=== PATIENT | male | born 1965 | race African-American/Black ===

== ENCOUNTER 2016-08-14 00:43 | Emergency (ER) | payer SELFPAY ==
--- NOTE | 2016-08-14 01:17 | ED ORDER SUMMARY ---
..... Patient: ANTONIO FERGUSON OrderSheet [facility] VisitID: [id number] [address] [place] [address] 51y, M Registration Date/Time: 08/14/2016 ORDER SHEET Weight: 73.4 kg (stated) Allergies: No Known Drug Allergy GENERAL ORDERS: Elbow 3 or 4V Right Urgent (00:47 08/14/2016 AMcQuoid ER Tech1 verbal order read back to Jayne RDZ) (Ack 0:49 AMcQuoid ER Tech1) (0:56 AMcQuoid ER Tech1) Sling - arm (01:17 08/14/2016 Jayne RDZ) (1:18 HSoule) MEDICATION ORDERS: IV FLUIDS: ORDER SHEET NOTES: [Electronically signed by Patricia Oh (04:06 08/14/2016)] [Electronically signed by Og Maxwell MD (07:38 08/16/2016)] [Electronically locked/signed by Patricia Oh (04:06 08/14/2016)]
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
--- NOTE | 2016-08-14 01:17 | ED ORDER SUMMARY ---
..... Patient: ANTONIO FERGUSON OrderSheet [facility] VisitID: [id number] [address] [place] [address] 51y, M Registration Date/Time: 08/14/2016 ORDER SHEET Weight: 73.4 kg (stated) Allergies: No Known Drug Allergy GENERAL ORDERS: Elbow 3 or 4V Right Urgent (00:47 08/14/2016 AMcQuoid ER Tech1 verbal order read back to Jayne RDZ) (Ack 0:49 AMcQuoid ER Tech1) (0:56 AMcQuoid ER Tech1) Sling - arm (01:17 08/14/2016 Jayne RDZ) (1:18 HSoule) MEDICATION ORDERS: IV FLUIDS: ORDER SHEET NOTES: [Electronically signed by Patricia Oh (04:06 08/14/2016)] [Electronically signed by Og Maxwell MD (07:38 08/16/2016)] [Electronically locked/signed by Patricia Oh (04:06 08/14/2016)]
--- NOTE | 2016-08-14 07:52 | DIAGNOSTIC IMAGING REPORT ---
PROCEDURE: XR ELBOW 3 OR 4 VIEWS - RIGHT INDICATION: TRAUMA/INJURY TECHNIQUE: Four views of the right elbow. COMPARISON: None. FINDINGS: Normal mineralization. No fractures. Normal osseous alignment. Spurring at the medial ulnohumeral joint. Enthesopathy at the triceps tendon insertion and at the common flexor tendon origin. No joint effusion. No suspicious soft-tissue calcification or radiodense foreign bodies. IMPRESSION: 1. Intact right elbow.
--- NOTE | 2016-08-16 07:38 | ED MED RECONCILIATION SUMMARY ---
Patient: ANTONIO FERGUSON Medication Reconciliation Report [facility] VisitID: [id number] [address] [place] [address] 51y, M Registration Date/Time: 08/14/2016 Weight: 73.4 kg Height/Length: 60 in. BMI: 22.3 ALLERGIES: No Known Drug Allergy The patient's Home Medications are listed below: THE FOLLOWING MEDICATIONS NEED TO BE RECONCILED: Advair HFA Inhalation Lisinopril Oral Spiriva HandiHaler Inhalation The source(s) of the original Home Medication information: Not obtained. The following Medications were given to the patient in the Emergency Department: None. The following Medications were prescribed to the patient: Motrin (available over the counter): take according to label instructions. -- Og Maxwell MD
--- NOTE | 2016-08-16 07:38 | ED MED RECONCILIATION SUMMARY ---
Patient: ANTONIO FERGUSON Medication Reconciliation Report [facility] VisitID: [id number] [address] [place] [address] 51y, M Registration Date/Time: 08/14/2016 Weight: 73.4 kg Height/Length: 60 in. BMI: 22.3 ALLERGIES: No Known Drug Allergy The patient's Home Medications are listed below: THE FOLLOWING MEDICATIONS NEED TO BE RECONCILED: Advair HFA Inhalation Lisinopril Oral Spiriva HandiHaler Inhalation The source(s) of the original Home Medication information: Not obtained. The following Medications were given to the patient in the Emergency Department: None. The following Medications were prescribed to the patient: Motrin (available over the counter): take according to label instructions. -- Og Maxwell MD
--- NOTE | 2016-08-16 07:38 | ED MAR SUMMARY ---
..... Medication Administration Record [facility] [address], [place] [id number] Patient: ANTONIO FERGUSON Visit ID: [id number] 51y, M Weight: 73.4 kg Height/Length: 71.5 in BMI: 22.3 ALLERGIES: No Known Drug Allergy
--- NOTE | 2016-08-16 07:38 | ED MAR SUMMARY ---
..... Medication Administration Record [facility] [address], [place] [id number] Patient: ANTONIO FERGUSON Visit ID: [id number] 51y, M Weight: 73.4 kg Height/Length: 71.5 in BMI: 22.3 ALLERGIES: No Known Drug Allergy
--- NOTE | 2016-08-16 07:38 | ED DISCHARGE INSTRUCTIONS ---
Patient: ANTONIO FERGUSON General Instructions [facility] VisitID: [id number] [place] [address] 51y, M Registration Date/Time: 08/14/2016 Single contusion to the right elbow.No hematoma or skin abrasion. Right lateral epicondylitis DJD right elbow. INSTRUCTIONS Apply ice for 15-20 minutes three times a day for one days followed by moist heat 15-20 minutes three times a day for one weeks until better. Wear simple sling for five days until better. Limit use of your right hand until better. (You are medically cleared to book into longterm.). OTC Medications: Motrin (available over the counter): take according to label instructions. Follow-up: Follow up with your doctor in one week. Call for the next available appointment. Understanding of the discharge instructions verbalized by patient. ADDITIONAL INFORMATION Contusion,Soft Tissue You have a CONTUSION, which is a bruise with swelling and some bleeding under the skin. There are no broken bones. This injury takes a few days to a few weeks to heal. Home Care: 1) Keep the injured part elevated to reduce pain and swelling. This is especially important during the first 48 hours. 2) Make an ice pack (ice cubes in a plastic bag, wrapped in a towel) and apply for 20 minutes every 1-2 hours the first day. Continue this 3-4 times a day until the pain and swelling goes away. 3) You may use acetaminophen (Tylenol) or ibuprofen (Motrin, Advil) to control pain, unless another pain medicine was prescribed. [ NOTE : If you have chronic liver or kidney disease or ever had a stomach ulcer or GI bleeding, talk with your doctor before using these medicines.] Follow Up with your doctor or this facility if you are not improving within the next THREE days. [NOTE: If X-rays were taken, they will be reviewed by a radiologist. You will be notified of any new findings that may affect your care.] Get Prompt Medical Attention if any of the following occur: -- Pain or swelling increases -- Injured arm or leg becomes cold, blue, numb or tingly -- Redness, warmth or drainage from the skin Tendonitis A tendon is the thick fibrous cord that joins muscle to bone and causes joints to move. Tendonitis is inflammation of the tendon which may be due to overuse, injury or infection. This usually involves the shoulders, forearm, wrist, hands and foot. Symptoms include local pain, swelling and tenderness to the touch. Movement of the involved joint increases the pain. Tendonitis requires about 4 to 6 weeks to heal. It is treated by preventing motion of the tendon with a splint or brace and use of anti-inflammatory medicine. Home Care: Apply an ice pack (ice cubes in a plastic bag, wrapped in a towel) over the injured area for 20 minutes every 1-2 hours the first day for pain relief. Continue this 3-4 times a day until the pain and swelling goes away. Rest the inflamed joint and protect it from movement. You may use ibuprofen (Motrin, Advil) or naproxen (Aleve, Naprosyn) to treat pain and inflammation, unless another medicine was prescribed. If you can't take these medicines, acetaminophen (Tylenol) may help with the pain, but does not treat inflammation. [NOTE : If you have chronic liver or kidney disease or ever had a stomach ulcer or GI bleeding, talk with your doctor before using these medicines.] As your symptoms improve, begin gradual motion at the involved joint. Follow Up With Your Doctor If Not Improving After The First Five Days Of Treatment. Get Prompt Medical Attention If Any Of The Following Occur: Redness over the painful area Increasing pain or swelling at the joint Fever of 100.4F (38C) or higher, or as directed by your healthcare provider Tennis Elbow Muscles connect to bones by thick fibrous cords (tendons). When the muscles are overused by repeated motion, the tendons may become inflamed and painful. This condition is called tendonitis. Tennis elbow is a form of tendonitis that occurs when the forearm muscles are used repeatedly in a twisting motion. It is also called lateral epicondylitis. Pain from tennis elbow occurs primarily on the outside of the elbow. But the pain can spread into the forearm and wrist. The elbow may also be swollen and tender to the touch. The pain may increase with arm movement or simple activities. Bending your wrist back, shaking hands, or turning a doorknob may cause pain. The pain often gets worse after several weeks or months. Sometimes you may feel pain when your arm is still. Tennis players who use a backhand stroke with poor technique are more prone to tennis elbow. Of course, playing tennis is only one cause of tennis elbow. Many common activities, such as hammering, painting, and raking, can also cause tennis elbow. Besides tennis players, people at risk include lead ramp service man, gardeners, musicians, and dentists. Sometimes patients develop this condition without any obvious activity that would cause the injury. Treatment includes rest of the arm and anti-inflammatory medicines. Special splints help reduce symptoms. Symptoms should improve after 4-6 weeks of rest. Steroid injections may be used if there is no improvement with rest and splinting alone. After pain is relieved, activities must be modified so the symptoms do not return. Physical therapy, with stretching, range of motion and strengthening exercises may be prescribed. These treatments are successful in most (85% of cases). Patients with continued symptoms for six months may benefit from surgical treatment. Home Care: Rest your elbow as needed and protect it from movement that causes pain. You may be advised to use a forearm splint at night to reduce morning symptoms. Your doctor may recommend a special wrap or splint to compress the muscles of the forearm and reduce pain during daytime activities. As your symptoms improve, begin to increase movement at the elbow. Apply an ice pack (ice cubes in a plastic bag, wrapped in a towel) over the injured area for 20 minutes every 1-2 hours the first day. Continue with ice packs 3-4 times a day for the next two days, then as needed for the relief of pain and swelling. unless another pain medicine was prescribed. If you cannot take these medicines, you may use acetaminophen (Tylenol). [NOTE: If you have chronic kidney disease or ever had a stomach ulcer or GI bleeding, talk with your doctor before using these medicines.] After healing, avoid the motion that caused your pain or learn to move in a way that causes less stress on the tendon. Continued use of a forearm wrap may prevent recurrence. Follow Up with your doctor, or as advised by our staff, if your symptoms are not starting to improve after one week of treatment. Return Promptly or contact your doctor if any of the following occur: Redness over the painful area Increasing pain or swelling at the elbow Unexplained fever over 100.0F (37.8C)) Sling A sling is designed to support your arm in a position of rest. It is used for injuries of the hand, forearm, upper arm, and shoulder. A shoulder that is immobilized too long can become stiff and lose range of motion. Follow up with your doctor as advised and do not use the sling longer than directed. Home Use: Leave the sling in place as long as directed by your doctor. Unless told otherwise, you may remove it when bathing, dressing, and when you go to sleep. The sling is adjustable. If it becomes loose, adjust it so that your forearm is horizontal (level with the ground). Your hand should be level with the elbow. You have been given the following additional information: Contusion, Soft Tissue Tendonitis Tennis Elbow Sling Limit use of your right hand until better. (Electronically signed by Og Maxwell MD 08/16/2016 7:38)
== END 2016-08-14 01:20 | disposition home or self-care (01) ==
LOC: ED SRH 00:43
DX: S50.01XA Contusion of right elbow, initial encounter (principal); W22.8XXA Striking against or struck by other objects, initial encounter; Y93.01 Activity, walking, marching and hiking; Y92.149 Unspecified place in prison as the place of occurrence of the external cause; Y99.8 Other external cause status; M77.11 Lateral epicondylitis, right elbow; M19.021 Primary osteoarthritis, right elbow; Z79.899 Other long term (current) drug therapy; E11.9 Type 2 diabetes mellitus without complications; I10 Essential (primary) hypertension